=== PATIENT | female | born 1950 | race Caucasian/White ===

== ENCOUNTER → 2021-11-08 | Outpatient (CLI) | payer OTHER | LOC: KOH-I 11-04 11:00 | DX: R42 Dizziness and giddiness (principal); G31.9 Degenerative disease of nervous system, unspecified | CPT/HCPCS: 70450 ==

== ENCOUNTER 2022-05-30 11:31 | Emergency (ER) | payer OTHER ==
[2022-05-30 13:06] LABS: HEMOGLOBIN 12.6 gm/dl (12.3-15.3); RED BLOOD COUNT 4.08 M/UL (4.00-5.10)
[2022-05-30 13:34] LABS: BUN/CREATININE RATIO 22 (0-10)
[2022-05-30] MEDS ORDERED: CEPHALEXIN500 M1 PO (17:58)
[2022-05-30] MEDS ORDERED: ONDANSETRON ODT4 MG SL (17:58)
== END 2022-05-30 18:18 | disposition home or self-care (01) ==
LOC: ER1 11:31
PROVIDERS: Physician Assistant
DX: U07.1 COVID-19 (principal); J40 Bronchitis, not specified as acute or chronic; N39.0 Urinary tract infection, site not specified; R77.8 Other specified abnormalities of plasma proteins; R91.1 Solitary pulmonary nodule; E78.5 Hyperlipidemia, unspecified; Z90.89 Acquired absence of other organs; Z90.49 Acquired absence of other specified parts of digestive tract
CPT/HCPCS: 0240U; 71045; 80053; 81001; 82550; 82553; 84484; 85025; 87086; 93005; 96374; 99284; J2405